=== PATIENT | female | born 1975 | race Hispanic/Latino ===

== ENCOUNTER 2021-04-11 09:11 | Emergency (ER) | payer OTHER ==
[~2021-04-11] VITALS: Ht 144.8 cm; Wt 72.6 kg
[2021-04-11 09:14] VITALS: BP 133/74
[2021-04-11] MEDS ORDERED: ACETAMINOPHEN 500 MG TABLET PO SCH (09:30)
[2021-04-11] MEDS ORDERED: AZITHROMYCIN 250 MG TABLET PO SCH (12:00)
[2021-04-11] MEDS ORDERED: CEFTRIAXONE 1G VIAL IVP SCH (12:00)
[2021-04-11] MEDS ORDERED: DEXAMETHASONE SOD PHOSPHATE 4 MG/ML 1ML VIAL IVP SCH (12:00)
[2021-04-11 14:06] VITALS: BP 138/85
[2021-04-11 14:36] LABS: INR 0.92 (0.85-1.15); PROTHROMBIN TIME 10.1 SEC (9.6-11.6)
[2021-04-11 14:37] LABS: CREATININE 0.7 mg/dL (0.5-1.5); POTASSIUM 3.8 mmol/L (3.5-5.1)
[2021-04-11 14:42] LABS: BILIRUBIN,TOTAL 0.2 mg/dL (0.2-1.0); TOTAL PROTEIN, SERUM 7.6 g/dL (6.0-8.3)
[2021-04-11 14:43] LABS: BASOPHILS % (AUTO) 0.8 % (0.0-5.0); EOSINOPHILS % (AUTO) 0.2 % (0.0-8.0); HEMATOCRIT 36.4 % (36-48); LYMPHOCYTES % (AUTO) 8.7 % (21.0-51.0); MEAN CORPUSCULAR HEMOGLOBIN 28.8 pg (27.0-33.0); MEAN CORPUSCULAR HGB CONC 33.2 g/dL (32.0-36.0); MEAN CORPUSCULAR VOLUME 86.7 fL (79-99); MONOCYTES % (AUTO) 1.7 % (3.0-13.0); NEUTROPHILS % (AUTO) 88.1 % (40.0-77.0); PLATELET COUNT (AUTO) 314 K/uL (130-400); RED CELL DISTRIBUTION WIDTH 13.5 % (11.0-15.5); WHITE BLOOD COUNT (AUTO) 11.4 K/uL (4.8-10.8)
[2021-04-11 14:49] LABS: B-TYPE NATRIURETIC PEPTIDE 48 pg/mL (0-100)
[2021-04-11] MEDS ORDERED: ASPI-1005 PO (14:49)
[2021-04-11] MEDS ORDERED: METH4TAB3 PO (14:49)
[2021-04-11] MEDS ORDERED: AZIT500T PO (14:49)
[2021-04-11 15:04] LABS: APPEARANCE,URINE Cloudy (CLEAR); BILIRUBIN,URINE Small (NEGATIVE); COLOR,URINE Red (YELLOW); GLUCOSE, URINE (UA) TRACE mg/dL (NEGATIVE); KETONES,URINE 15 mg/dL (NEGATIVE); LEUKOCYTE ESTERASE ,URINE Small (NEGATIVE); NITRATE,URINE Negative (NEGATIVE); OCCULT BLOOD,URINE Large (NEGATIVE); PH,URINE 6.5 (5.0-8.0); PROTEIN,URINE POS 2+ mg/dL (NEGATIVE)
[2021-04-11 15:07] VITALS: BP 135/82
[2021-04-11 15:14] LABS: BACTERIA,URINE Rare /HPF (None Seen); RBC,URINE TNTC /HPF (0-1); SQUAMOUS EPITHELIAL CELL,UR None Seen /HPF (0-2)
== END 2021-04-11 15:42 | disposition home or self-care (01) ==
LOC: EDH 09:11
DX: U07.1 COVID-19 (principal); J12.82 Pneumonia due to coronavirus disease 2019; E78.00 Pure hypercholesterolemia, unspecified; E10.9 Type 1 diabetes mellitus without complications; H54.62 Unqualified visual loss, left eye, normal vision right eye
CPT/HCPCS: 36415; 71045; 80053; 81001; 82550; 83880; 84484; 85025; 85610; 93005; 96374; 96375; 99285; J0696; J1100